=== PATIENT | female | born 1995 | race Hispanic/Latino ===

== ENCOUNTER 2017-08-02 08:16 | Emergency (ER) | payer MEDICAID ==
[2017-08-02 08:30] VITALS: BMI 25.8
[2017-08-02 08:32] VITALS: O2SAT 100
--- NOTE | 2017-08-02 11:20 | ED PDOC ---
HPI: Headache Chief Complaint (Provider): rigght facial pain History Per: Patient History/Exam Limitations: no limitations Onset/Duration Of Symptoms: Intermittent Episodes Current Symptoms Are (Timing): Still Present Severity: Moderate Pain Scale Rating Of: 7 Quality: Pressure Associated Symptoms: Blurred Vision (right eye, headache, nasal congestion) Additional Complaint(s): 22 yr old F presents to ED with complaint of worsening right facial pain since yesterday. Patient states she's had recurrent sinusitis for past few months, her PMD gave her a course of Augmentin which she just finished on 07/20/17. Associated symptoms are headache, nasal congestion, right periorbital pain and right eye discharge last night. Denies fevers, chills, nasal discharge, weakness or dizziness. Denies any PMHx. Denies prior facial imaging or seeing an ENT. PMD: Dr. Finnegan <Madeline Carrillo - Last Filed: 08/02/17 21:24> <Angelina Godinez - Last Filed: 08/03/17 17:37> Time Seen by Provider: 08/02/17 09:00 Chief Complaint (Nursing): Headache Supervising Attending Note - Supervising Attending Note The Documented history was done by the: Physician Marketing Segment Manager, Attending Physician The documented physical exam was done by the: Physician Marketing Segment Manager, Attending Physician The documented procedures were done by the: Physician Marketing Segment Manager, Attending Physician - Attestation: I have personally seen and examined this patient.: Yes I have fully participated in the care of the patient.: Yes I have reviewed all pertinent clinical information: Yes <Angelina Godinez - Last Filed: 08/03/17 17:37> Past Medical History Vital Signs: Last Vital Signs Temp 98.1 F 08/02/17 08:31 Pulse 71 08/02/17 08:31 Resp 20 08/02/17 08:31 BP 128/89 08/02/17 08:31 Pulse Ox 100 08/02/17 08:31 - Medical History PMH: No Chronic Diseases Denies: Diabetes, Hepatitis, HIV, HTN, Chronic Kidney Disease, Seizures, Sexually Transmitted Disease - Surgical History Surgical History: No Surg Hx - Family History Family History: States: No Known Family Hx - Social History Current smoker - smoking cessation education provided: No Ex-Smoker (has not smoked in the last 12 months): No Alcohol: None Drugs: Denies <Madeline Carrillo - Last Filed: 08/02/17 21:24> Reviewed: Historical Data, Nursing Documentation, Vital Signs Vital Signs: Last Vital Signs Temp 98.1 F 08/02/17 08:31 Pulse 71 08/02/17 08:31 Resp 20 08/02/17 08:31 BP 128/89 08/02/17 08:31 Pulse Ox 100 08/02/17 11:31 <Angelina Godinez - Last Filed: 08/03/17 17:37> - Home Medications Home Medications: Ambulatory Orders Medication Instructions Recorded No Known Home Med 01/27/16 - Allergies Allergies/Adverse Reactions: Allergies Allergy/AdvReac Type Severity Reaction Status Date / Time No Known Allergies Allergy Verified 01/27/16 00:35 Review of Systems Constitutional: Negative for: Fever, Chills Eyes: Positive for: Vision Change (blurry vision and discharge right eye) ENT: Positive for: Nose Congestion. Negative for: Nose Discharge, Throat Pain Cardiovascular: Negative for: Chest Pain, Palpitations, Light Headedness Respiratory: Negative for: Cough, Shortness of Breath, Wheezing Gastrointestinal: Negative for: Nausea, Vomiting, Abdominal Pain Genitourinary Female: Negative for: Dysuria, Frequency Musculoskeletal: Negative for: Neck Pain Skin: Negative for: Rash, Lesions Neurological: Positive for: Headache. Negative for: Weakness, Numbness, Confusion <Madeline Carrillo - Last Filed: 08/02/17 21:24> ROS Statement: Except As Marked, All Systems Reviewed And Found Negative <Angelina Godinez - Last Filed: 08/03/17 17:37> Physical Exam - Physical Exam Appears: Positive for: No Acute Distress Head Exam: Positive for: ATRAUMATIC, NORMOCEPHALIC Skin: Positive for: Warm, Dry, Rash (mild erythema of right maxillary area) Eye Exam: Positive for: EOMI, PERRL, Other (no discharge bilaterally). Negative for: Periorbital swelling, Periorbital tenderness, Conjunctival injection ENT: Negative for: Pharyngeal Erythema, Tonsillar Exudate Neck: Positive for: Painless ROM, Supple Cardiovascular/Chest: Positive for: Regular Rate, Rhythm. Negative for: Gallop , Murmur Respiratory: Positive for: Normal Breath Sounds. Negative for: Rales, Rhonchi Pulses-Carotid (L): 2+ Pulses-Carotid (R): 2+ Pulses-Radial (L): 2+ Pulses-Radial (R): 2+ Gastrointestinal/Abdominal: Positive for: Bowel Sounds (normal), Soft. 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 Negative for: Motor/Sensory Deficits, Facial Droop <Madeline Carrillo - Last Filed: 08/02/17 21:24> - Reviewed Nursing Documentation Reviewed: Yes Vital Signs Reviewed: Yes <Angelina Godinez - Last Filed: 08/03/17 17:37> - ECG O2 Sat by Pulse Oximetry: 100 - Progress ED Course And Treament: -Ibuprofen 600mg Po once -Maxillofacial CT w/o contrast: <Madeline Carrillo - Last Filed: 08/02/17 21:24> Disposition - Patient ED Disposition Is Patient to be Admitted: No Counseled Patient/Family Regarding: Studies Performed, Diagnosis, Need For Followup - Disposition Disposition: Routine/Home <Madeline Carrillo - Last Filed: 08/02/17 21:24> - Patient ED Disposition Is Patient to be Admitted: No Doctor Will See Patient In The: Office Counseled Patient/Family Regarding: Studies Performed, Diagnosis, Need For Followup - Disposition Disposition: Routine/Home Disposition Time: 13:46 <Angelina Godinez - Last Filed: 08/03/17 17:37> - Clinical Impression Clinical Impression: Sinus pain - Disposition Referrals: Ki Robison MD [Staff Provider] - Condition: GOOD Additional Instructions: Take motrin for pain. Follow up with ENT in 2-3 days. Return for worsening. Instructions: Sinusitis in Adults
--- NOTE | 2017-08-02 13:42 | CT ---
PROCEDURE: CT MAXILLOFACIAL BONES WITHOUT CONTRAST HISTORY: Right-sided facial pain COMPARISON: No prior study available comparison TECHNIQUE: Contiguous helical/transaxial CT images of the maxillofacial bones were obtained. Coronal and sagittal reformats were generated. Radiation dose: Total exam DLP = 836.12 mGy-cm. This CT exam was performed using one or more of the following dose reduction techniques: Automated exposure control, adjustment of the mA and/or kV according to patient size, and/or use of iterative reconstruction technique. . FINDINGS: NASAL BONES: There is mild localized rightward deviation of the nasal septum associated with a bilateral septal bone spurs left larger than right. There is also discontinuous appearance of the nasal septum at this level ; rule out sequela of old trauma. ORBITS: Orbits and contents unremarkable PARANASAL SINUSES/ MASTOIDS: Clear. MAXILLA: Unremarkable. MANDIBLE/ TEMPOROMANDIBULAR JOINTS: Unremarkable. SKULL BASE: Unremarkable. TEMPORAL BONES: Middle ears and mastoid grossly unremarkable. OTHER FINDINGS: Note is made of a small elliptical shaped radiopaque density within the left parasagittal frontal subcutaneous tissues just below the skin surface that could represent small calcification or possibly tiny foreign body such as glass or gravel. Clinical correlation recommended. IMPRESSION: No evidence of acute sinusitis. . No soft tissue abnormalities. Mild deviation of the nasal septum associate with septal bone spurs as described. There is also discontinuous appearance of the nasal septum at this level possibly due to old trauma. Clinical correlation recommended.
[2017-08-02 14:06] VITALS: BP 112/70; PULSE 76; RESP 18; TEMP 98
== END 2017-08-02 14:10 | disposition home or self-care (01) ==
LOC: H.ER 08:16
DX: J32.9 Chronic sinusitis, unspecified (principal); Z87.891 Personal history of nicotine dependence